=== PATIENT | male | born 1975 | race African-American/Black ===

== ENCOUNTER 2017-11-02 09:53 | Inpatient (IN) | payer OTHER ==
[~2017-11-02] VITALS: Ht 177.8 cm; Wt 74.8 kg
--- NOTE | 2017-11-02 09:55 | NUR ---
[id number] FROM [facility] FOR N/V/D, BACK SPASM, ACID REFLUX X 3AM. HYPERTENISVE IN THE FIELD-200/100, TAKES CLONIDINE 0.3MG TID. A/OX 4, BREATHING EVEN AND UNLABORED. NO SOB, NAD. SKIN WARM AND DRY. SAFETY AND COMFORT MEASURES IN PLACE. AWAITING MD ORDERS.
[2017-11-02] MEDS ORDERED: ONDANSETRON HCL/PF 4 MG/2 ML VIAL ONE (10:21)
[2017-11-02] MEDS ORDERED: PANTOPRAZOLE 40 MG VIAL ONE (10:21)
[2017-11-02] MEDS ORDERED: MORPHINE SULFATE INJ 2 MG/ML DISP.SYRIN ONE (10:22)
[2017-11-02] MEDS: HYDROMORPHONE INJ 2 MG/ML DISP.SYRIN IV ONE ×2 (10:22→10:40)
[2017-11-02 10:30] LABS: BASOPHILS # (AUTO) 0.2 /CMM (0.0-0.2); BASOPHILS % (AUTO) 1.4 % (0.0-2.0); EOSINOPHILS % (AUTO) 0.5 % (0.0-6.0); HEMATOCRIT 45 % (39-51); HEMOGLOBIN 14.8 g/dL (13.5-17.5); LYMPHOCYTES # (AUTO) 1.7 /CMM (0.8-4.8); LYMPHOCYTES % (AUTO) 14.2 % (20.0-44.0); MEAN CORPUSCULAR HGB CONC 33 g/dl (31.0-36.0); MEAN CORPUSCULAR VOLUME 78 fL (80-96); MONOCYTES # (AUTO) 0.4 /CMM (0.1-1.30); MONOCYTES % (AUTO) 3.8 % (2.0-12.0); NEUTROPHILS # (AUTO) 9.4 /CMM (1.8-8.9); NEUTROPHILS % (AUTO) 80.1 % (43.0-81.0); PLATELET COUNT (AUTO) 401 /CMM (150-450); RDW COEFFICIENT OF VARIATION 13.5 (11.5-15.0); RED BLOOD CELL COUNT(AUTO) 5.74 MIL/uL (4.5-6.0); WHITE BLOOD COUNT (AUTO) 11.8 K/uL (4.3-11.0)
[2017-11-02] MEDS ORDERED: IV NS 0.9% 1,000 ML BAG IV ONE (10:30)
[2017-11-02] MEDS ORDERED: MORPHINE SULFATE INJ 2 MG/ML DISP.SYRIN IV ONE ×2 (10:30→13:00)
[2017-11-02] MEDS ORDERED: ONDANSETRON HCL/PF 4 MG/2 ML VIAL IVP ONE (10:30)
[2017-11-02] MEDS ORDERED: PANTOPRAZOLE 40 MG VIAL IV ONE (10:30)
[2017-11-02 10:43] LABS: CALCIUM, SERUM 9.7 mg/dL (8.5-10.1); CREATININE 1.1 mg/dL (0.6-1.3); POTASSIUM 3.7 mmol/L (3.5-5.1)
[2017-11-02 10:49] LABS: ALBUMIN 4.6 g/dL (3.4-5.0); BILIRUBIN,DIRECT 0.1 mg/dL (0.0-0.2); BILIRUBIN,TOTAL 0.5 mg/dL (0.2-1.0); TOTAL PROTEIN, SERUM 8.8 g/dL (6.4-8.2)
[2017-11-02] MEDS ORDERED: MORPHINE SULFATE INJ 4 MG/ML DISP.SYRIN ONE (12:57)
[2017-11-02] MEDS ORDERED: LABETALOL HCL IV 100MG VIAL ONE (12:58)
[2017-11-02] MEDS ORDERED: LABETALOL HCL IV 100MG VIAL IV ONE ×2 (13:00→14:00)
[2017-11-02] MEDS ORDERED: IOHEXOL-300 100 ML VIAL IV ONE (13:27)
--- NOTE | 2017-11-02 13:32 | NUR ---
PATIENT TAKEN TO CT VIA WHEELCHAIR.
--- NOTE | 2017-11-02 13:47 | NUR ---
PATIENT RETURNED FROM CT IN STABLE CONDITION.
[2017-11-02] MEDS ORDERED: HYDROMORPHONE INJ 0.5 MG/0.5 ML SYRINGE ONE (15:30)
[2017-11-02] MEDS ORDERED: diphenhydrAMINE HCL 50 MG/ML VIAL IV ONE (15:30)
[2017-11-02] MEDS ORDERED: HYDROMORPHONE 1 MG/1 ML DISP.SYRIN IV ONE (15:30)
[2017-11-02] MEDS ORDERED: diphenhydrAMINE HCL 50 MG/ML VIAL ONE (15:30)
[2017-11-02] MEDS ORDERED: CLONIDINE HCL 0.1 MG TABLET PO ONE ×3 (15:30→16:00)
[2017-11-02] MEDS ORDERED: CLONIDINE HCL 0.1 MG TABLET ONE ×2 (15:31→15:41)
--- NOTE | 2017-11-02 15:40 | NUR ---
PT IS ASSIGNED TO [facility]#: 306-1, PT IS DIAGNOSED WITH UNCONTROLLABLE HTN, AND LUIS GUTIERREZ IS THE ACCEPTING EMR TRAINER.
[2017-11-02] MEDS ORDERED: QUET200T PO (15:41)
[2017-11-02] MEDS ORDERED: SERT100T PO (15:41)
[2017-11-02] MEDS ORDERED: CLON1TAB5 PO (15:41)
[2017-11-02] MEDS ORDERED: CLON0.3T PO (15:41)
--- NOTE | 2017-11-02 15:53 | NUR ---
REPORT GIVEN TO DULCE BENAVIDEZ FOR JAIME.
[2017-11-02 16:00] VITALS: BP_SYST 162; BP_SYST 165; BP_DIAS 103; BP_DIAS 89
[2017-11-02] MEDS ORDERED: ACETAMINOPHEN 325 MG TABLET PO PRN (16:00)
[2017-11-02] MEDS ORDERED: MAG HYDROX/AL HYDROX/SIMETH 30 ML UDC PO PRN ×2 (16:00→16:15)
[2017-11-02] MEDS ORDERED: ONDANSETRON HCL/PF 4 MG/2 ML VIAL IVP PRN ×2 (16:00→16:15)
[2017-11-02] MEDS ORDERED: HYDROCODONE/APAP 5/325MG 1 EACH TABLET PO PRN (16:00)
[2017-11-02] MEDS ORDERED: Z GUARD REMEDY 2 OZ OINT TP PRN ×2 (16:00→16:15)
[2017-11-02] MEDS ORDERED: MAGNESIUM HYDROXIDE 30 ML UDC PO PRN ×2 (16:00→16:15)
--- NOTE | 2017-11-02 16:00 | NUR ---
RN NOTES PT WAS BROUGHT UP TO FLOOR BY WEATHER ANALYST. PT IS A/O X4, ABLE TO AMBULATE TO THE BED. PT ON RA, RESPIRATIONS ARE EVEN AND UNLABORED. IV ON LAC INTACT AND SL. NO SIGNS OF DISTRESS NOTED. SAFETY MEASURES ARE IN PLACE, CALL LIGHT IS IN REACH. WILL CONTINUE TO MONITOR.
--- NOTE | 2017-11-02 16:00 | NUR ---
PATIENT TRANSPORTED TO 306-1 VIA ACLS PROTOCOL. RNDULCE TO PROVIDE JAIME.
[2017-11-02] MEDS ORDERED: CLONIDINE HCL 0.1 MG TABLET PO SCH (17:00)
[2017-11-02] MEDS: SERTRALINE HCL 50 MG TABLET PO SCH (17:27)
[2017-11-02] MEDS: QUETIAPINE FUMARATE 100 MG TABLET PO SCH (17:28)
--- NOTE | 2017-11-02 18:40 | NUR ---
RN NOTES PT IS SITTING UP IN BED, AWAKE AND ALERT. PT ON RA, RESPIRATIONS ARE EVEN AND UNLABORED. IV ON LAC INTACT AND SL. ALL MEDS WERE GIVEN ORDERED AND PT NEEDS MET. NO SIGNS OF DISTRESS NOTED. SAFETY MEASURES ARE IN PLACE, CALL LIGHT IS IN REACH. WILL ENDORSE TO BILINGUAL TEACHER ASSISTANT RN FOR CONTINUITY OF CARE.
[2017-11-02] MEDS: clonazePAM 1 MG TABLET PO PRN (18:47)
[2017-11-02] MEDS: HYDROCODONE/APAP 5/325MG 1 EACH TABLET PO PRN ×2 (18:51→22:58)
--- NOTE | 2017-11-02 19:20 | NUR ---
PLANT AND MACHINERY VALUER OPENING NOTES: RECEIVED PT IN BED AND IS AWAKE. PT IS A/OX3. PT HAS IV ON L AC AND IS PATENT AND INTACT. PT CURRENTLY [id number] OF ITCHINESS. CALL LIGHT WITHIN PT'S REACH. BED KEPT IN LOW, LOCKED POSITION, AND SIDE RAILS X 2 UP. WILL CONTINUE TO MONITOR PT.
[2017-11-02 20:00] VITALS: BP 145/102
[2017-11-02] MEDS: hydrOXYzine 10 MG TABLET PO PRN (20:01)
[2017-11-02] MEDS: FAMOTIDINE (20 MG) 20 MG TABLET PO SCH (20:01)
--- NOTE | 2017-11-02 20:01 | NUR ---
ALL SOURCE COLLECTION MANAGER NOTES: PT COMPLAINING OF ITCHINESS EVEN AFTER BENADRYL WAS GIVEN EARLIER. PT WAS ADMINISTERED ATARAX PO. WILL CONTINUE TO MONITOR.
[2017-11-03] VITALS (7 sets, daily range): BP systolic 134–164; BP diastolic 72–118
[2017-11-03] MEDS: hydrOXYzine 10 MG TABLET PO PRN (04:30)
[2017-11-03] MEDS: HYDROCODONE/APAP 5/325MG 1 EACH TABLET PO PRN ×3 (04:30→20:11)
--- NOTE | 2017-11-03 04:30 | NUR ---
CASEWORK SPECIALIST NOTES: PT COMPLAINING OF INTERMITTENTLY BACK AND ABDOMINAL PAIN. "IT COMES AND GOES." 12/23 PAIN. PT WAS ADMINISTERED NORCO 5. PT ALSO SAID HIS ITCHINESS CALMED DOWN BUT WOULD STILL LIKE SOMETHING FOR IT IF PRN MED IS DUE. PT WAS ALSO ADMINISTERED ATARAX 10MG. WILL CONTINUE TO MONITOR PT.
--- NOTE | 2017-11-03 06:12 | NUR ---
CUSTOMER FIELD REPRESENTATIVE CLOSING NOTES: ALL NEEDS WERE ATTENDED AND ANTICIPATED FOR. PT ASLEEP AT THIS TIME. PT ON ROOM AIR AND TOLERATING WELL. PT ON TELE BOX AND READING SHOWS SR 70S. PT HAS IV ON L AC #20G AND IS PATENT AND INTACT. CURRENTLY S/L. CALL LIGHT WITHIN PT'S REACH. BED KEPT IN LOW, LOCKED POSITION, AND SIDE RAILS X 2UP. WILL ENDORSE TO AM NURSE FOR JAIME.
--- NOTE | 2017-11-03 07:22 | NUR ---
MS/RN Patient received Patient received from welder 2nd shift. 9Sleeping soundly at this time, appears in no distress. Bed in low setting, brakes locked, side rails X2 in upright position, call light within reach. Will continue to monitor and ensure safety.
[2017-11-03] MEDS ORDERED: PANTOPRAZOLE 40 MG TABLET.DR PO SCH ×2 (07:30)
[2017-11-03] MEDS: FAMOTIDINE (20 MG) 20 MG TABLET PO SCH ×2 (08:24→20:11)
[2017-11-03] MEDS: predniSONE 5 MG TABLET PO SCH (08:24)
[2017-11-03] MEDS: cetrizine 10 MG TABLET PO SCH (08:24)
[2017-11-03] MEDS: SERTRALINE HCL 50 MG TABLET PO SCH ×2 (08:24→17:04)
[2017-11-03] MEDS: CLONIDINE HCL 0.1 MG TABLET PO SCH ×3 (08:25→17:05)
[2017-11-03] MEDS: QUETIAPINE FUMARATE 100 MG TABLET PO SCH ×3 (08:26→17:05)
--- NOTE | 2017-11-03 09:34 | NUR ---
MS/RN Pain Complaining of lower back pain 12/23. Manzanita one tablet administered, will monitor effectiveness.
[2017-11-03 10:30] LABS: BASOPHILS % (AUTO) 0.5 % (0.0-2.0); EOSINOPHILS % (AUTO) 2.9 % (0.0-6.0); HEMATOCRIT 38 % (39-51); HEMOGLOBIN 12.7 g/dL (13.5-17.5); LYMPHOCYTES # (AUTO) 1.6 /CMM (0.8-4.8); MEAN CORPUSCULAR HGB CONC 33 g/dl (31.0-36.0); MEAN CORPUSCULAR VOLUME 79 fL (80-96); MONOCYTES # (AUTO) 0.6 /CMM (0.1-1.30); MONOCYTES % (AUTO) 7.1 % (2.0-12.0); NEUTROPHILS # (AUTO) 5.3 /CMM (1.8-8.9); NEUTROPHILS % (AUTO) 68.5 % (43.0-81.0); PLATELET COUNT (AUTO) 342 /CMM (150-450); RDW COEFFICIENT OF VARIATION 14.5 (11.5-15.0); RED BLOOD CELL COUNT(AUTO) 4.85 MIL/uL (4.5-6.0); WHITE BLOOD COUNT (AUTO) 7.8 K/uL (4.3-11.0)
--- NOTE | 2017-11-03 10:48 | NUR ---
Social service consult requested by KRISTI Hernandez for headache/alcohol abuse. Pt. is a 42 year old male who was admitted to [facility] for a headache from [facility]. TONIA met with pt. bedside. Pt. is alert and oriented x 4. Pt. was cooperative and some what guarded when speaking with SW. Pt. states he resides at an independent living located at [address] [place] [address] in [facility]. Pt. states he does not like it there and is working with a case packer and sealer at [facility] to find permanent placement. Pt. has a history of Bipolar, Depression and anxiety. Pt. states he is depressed and would like to be discharged back to [facility] for ongoing psychiatric care. Pt's medications include Trazadone, Klonopin, Zoloft and Seroquel. Pt. to be seen by psychiatrist today at [facility]. TONIA contacted [facility] and spoke to Odalys in intake inquiring if they will accept pt. back. Odalys informed TONIA to fax clinicals once pt. is cleared for discharge and they will evaluate and follow up with TONIA. TONIA updated Med Surg 3 CRNavjot Moseley regarding pt's discharge plan. Addendum: 11/04/17 at 0946 by ALEX RANDALL Pt's current [address] is [address] [place] [address].
[2017-11-03 10:50] LABS: CALCIUM, SERUM 8.8 mg/dL (8.5-10.1); PHOSPHORUS 3.1 mg/dL (2.5-4.9)
[2017-11-03 11:02] LABS: THYROID STIMULATING HORMONE 2.756 uIU/mL (0.358-3.74)
--- NOTE | 2017-11-03 11:30 | NUR ---
MS/RN S/B Alondra Hernandez BUS ATTENDANT S/B BUS ATTENDANT - labs ordered for tomorrow along with psyh consult with Dr Romero. GPS made aware of consult, face sheet faxed.
[2017-11-03] MEDS: clonazePAM 1 MG TABLET PO PRN (13:42)
[2017-11-03] MEDS: ACETAMINOPHEN 325 MG TABLET PO PRN (13:42)
--- NOTE | 2017-11-03 14:46 | NUR ---
MS/RN Anxiety Patient stating that he is starting to feel anxious and requesting medication. Klonopin 1mg administered along with tylenol for headache, will monitor effectiveness.
--- NOTE | 2017-11-03 18:09 | NUR ---
MS/RN End note Patient remains in stable condition, all needs attended, will endorse to security patrol officer. Still awaiting psych eval.
--- NOTE | 2017-11-03 19:18 | NUR ---
MS RN OPENING NOTES: RECEIVED PT IN BED AND IS ASLEEP AT THIS TIME. PT ON ROOM AIR AND TOLERATING WELL. IV IN TACT AND IS PATENT AND INTACT. CALL LIGHT WITHIN PT'S REACH. BED KEPT IN LOW, LOCKED POSITION, AND SIDE RAILS X 2UP. WILL CONTINUE TO MONITOR PT.
--- NOTE | 2017-11-03 20:16 | NUR ---
MS RN NOTES: PT COMPLAINING OF 8/10 HEADACHE AND MOUTH PAIN. PT WAS ADMINISTERED NORCO 5. WILL CONTINUE TO MONITOR.
--- NOTE | 2017-11-04 07:14 | NUR ---
MS/RN Patient received Patient received from film processing shift supervisor. Sleeping soundly at this time, appears in no distress or discomfort. Bed in low setting, brakes locked, side rails X2 in upright position. Call light within reach, will continue to monitor and ensure safety.
--- NOTE | 2017-11-04 07:16 | NUR ---
MS RN CLOSING NOTES: ALL NEEDS WERE ATTENDED AND ANTICIPATED FOR. PT ON ROOM AIR AND TOLERATING WELL. PT A/OX4. PT HAS IV AND IS PATENT AND INTACT. CALL LIGHT WITHIN PT'S REACH. BED KEPT IN LOW, LOCKED POSITION, AND SIDE RAILS X 2UP. ENDORSED TO AM NURSE FOR JAIME.
[2017-11-04 07:31] LABS: CALCIUM, SERUM 8.9 mg/dL (8.5-10.1); CREATININE 1.1 mg/dL (0.6-1.3); MAGNESIUM 1.8 mg/dL (1.8-2.4); PHOSPHORUS 3.5 mg/dL (2.5-4.9)
[2017-11-04 07:35] LABS: BASOPHILS % (AUTO) 0.4 % (0.0-2.0); EOSINOPHILS % (AUTO) 2.3 % (0.0-6.0); HEMATOCRIT 40 % (39-51); HEMOGLOBIN 13.3 g/dL (13.5-17.5); LYMPHOCYTES % (AUTO) 21.1 % (20.0-44.0); MEAN CORPUSCULAR HGB CONC 33 g/dl (31.0-36.0); MEAN CORPUSCULAR VOLUME 78 fL (80-96); MONOCYTES # (AUTO) 0.6 /CMM (0.1-1.30); MONOCYTES % (AUTO) 6.6 % (2.0-12.0); NEUTROPHILS # (AUTO) 6.5 /CMM (1.8-8.9); NEUTROPHILS % (AUTO) 69.6 % (43.0-81.0); PLATELET COUNT (AUTO) 375 /CMM (150-450); RDW COEFFICIENT OF VARIATION 14.6 (11.5-15.0); RED BLOOD CELL COUNT(AUTO) 5.09 MIL/uL (4.5-6.0); WHITE BLOOD COUNT (AUTO) 9.3 K/uL (4.3-11.0)
[2017-11-04 08:00] VITALS: BP 186/114
[2017-11-04] MEDS: CLONIDINE HCL 0.1 MG TABLET PO SCH ×3 (08:23→17:06)
[2017-11-04] MEDS: predniSONE 5 MG TABLET PO SCH (08:23)
[2017-11-04] MEDS: cetrizine 10 MG TABLET PO SCH (08:23)
[2017-11-04] MEDS: FAMOTIDINE (20 MG) 20 MG TABLET PO SCH ×2 (08:23→20:35)
[2017-11-04] MEDS: QUETIAPINE FUMARATE 100 MG TABLET PO SCH ×3 (08:23→17:06)
[2017-11-04] MEDS: SERTRALINE HCL 50 MG TABLET PO SCH ×2 (08:23→17:07)
[2017-11-04] MEDS: ACETAMINOPHEN 325 MG TABLET PO PRN (08:24)
--- NOTE | 2017-11-04 08:55 | NUR ---
MS/RN Hypertension Blood pressure this morning noted to be elevated at 186/114. Morning scheduled medications administered, will recheck after 30 minutes.
[2017-11-04] MEDS: HYDROCODONE/APAP 5/325MG 1 EACH TABLET PO PRN (09:45)
--- NOTE | 2017-11-04 09:46 | NUR ---
[facility]
[2017-11-04 11:30] VITALS: BP 153/102
--- NOTE | 2017-11-04 11:30 | NUR ---
MS/RN S/B Dr Moreno Seen by Dr Moreno - patient to be discharged back to [facility] later today.
[2017-11-04 12:00] VITALS: BP 148/99
--- NOTE | 2017-11-04 12:00 | NUR ---
MS/RN Blood pressure Blood pressure recorded at noon - 148/99. Medications administered, will recheck.
[2017-11-04] MEDS ORDERED: NICO-676 TP (12:22)
[2017-11-04] MEDS: clonazePAM 1 MG TABLET PO PRN (12:53)
[2017-11-04 14:00] VITALS: BP 160/114
--- NOTE | 2017-11-04 14:00 | NUR ---
MS/RN Blood pressure rechecked Not able to get blood pressure reading using automatic machine, checked manually 160/114. Patient denies pain, medications previously given for anxiety and hypertension. Dr Josh jerome.
--- NOTE | 2017-11-04 15:15 | NUR ---
MS/RN New orders New order given by Dr Moreno for norvasc 5mg BID, first dose now.
[2017-11-04] MEDS: AMLODIPINE BESYLATE 5 MG TABLET PO SCH ×2 (15:19→17:07)
[2017-11-04 16:00] VITALS: BP_SYST 147; BP_SYST 149; BP_DIAS 97
--- NOTE | 2017-11-04 18:10 | NUR ---
MS/RN End note Blood pressure continues to be elevated 149/97, all medications administered as ordered. Will continue to monitor and endorse to loom doffer.
--- NOTE | 2017-11-04 19:15 | NUR ---
MS/RN OPENING NOTES PT RECEIVED WITH EYES CLOSED, RESTING IN BED. ON ROOM AIR, BREATHING EVEN AND UNLABORED. DENIES SOB, NOTES LOW BACK PAIN 12/23. OFFERED PAIN MEDICATION, PT WANTS TO WAIT UNTIL LATER. IV TO LAC PATENT AND INTACT. PT IS CALM AND COOPERATIVE AT THIS TIME. BED IN LOW/LOCKED POSITION WITH CALL LIGHT IN REACH. SIDE RAILS UPX2. WILL CONTINUE TO MONITOR
[2017-11-04 20:00] VITALS: BP 117/66
[2017-11-05] MEDS: HYDROCODONE/APAP 5/325MG 1 EACH TABLET PO PRN (05:22)
--- NOTE | 2017-11-05 06:39 | NUR ---
PT C/O OF NAUSEA. ADMINISTERED PRN ZOFRAN ORDERED. WILL MONITOR FOR EFFECTIVENESS
--- NOTE | 2017-11-05 07:39 | NUR ---
MS/RN CLOSING NOTES PT AWAKE, HOB ELEVATED. A/OX4. ON ROOM AIR, BREATHING EVEN AND UNLABORED. IN NO APPARENT DISTRESS. DENIES SOB, PAIN DECREASED AFTER ADMINISTRATION OF NORCO. NAUSEA CEASED. IV TO LAC PATENT AND INTACT. NO SIGNIFICANT CHANGES OVERNIGHT. PT COMFORTABLE DURING SHIFT. ALL NEEDS MET. BED IN LOW/LOCKED POSITION WITH CALL LIGHT IN REACH. SIDE RAILS UPX2. ENDORSED TO DAY SHIFT RN JAIME.
--- NOTE | 2017-11-05 07:45 | NUR ---
RN NOTES PATIENT A/OX4, BREATHING EVEN AND UNLABORED, NO SOB NOTED, DENIES PAIN OR DISCOMFORT AT THIS TIME. NEEDS ATTENDED, CALL LIGHT WITHIN REACH, WILL CONTINUE TO MONITOR.
[2017-11-05 08:00] VITALS: BP 156/111
[2017-11-05] MEDS: QUETIAPINE FUMARATE 100 MG TABLET PO SCH ×2 (08:38→12:47)
[2017-11-05] MEDS: CLONIDINE HCL 0.1 MG TABLET PO SCH ×2 (08:38→12:47)
[2017-11-05] MEDS: predniSONE 5 MG TABLET PO SCH (08:39)
[2017-11-05] MEDS: AMLODIPINE BESYLATE 5 MG TABLET PO SCH (08:39)
[2017-11-05] MEDS: FAMOTIDINE (20 MG) 20 MG TABLET PO SCH (08:39)
[2017-11-05] MEDS: cetrizine 10 MG TABLET PO SCH (08:40)
[2017-11-05] MEDS: SERTRALINE HCL 50 MG TABLET PO SCH (08:40)
[2017-11-05 11:02] VITALS: BP 129/89
--- NOTE | 2017-11-05 11:20 | NUR ---
TONIA faxed current clinicals along with discharge progress note to Odalys in intake at [facility] Nathanael Chau . TONIA received a call back from [facility] stating the accepting doctor at [facility] is Dr. Mccollum and for the nurse to call in a nurse to nurse report to x [phone]. TONIA called pt's RN Mitzi and gave her the aforementioned contact number for RN to RN report.
--- NOTE | 2017-11-05 12:22 | NUR ---
TONIA gave PRAMOD Cartagena address to [facility] located at [address] [facility] [place] [address]. Pt. will need taxi voucher for transportation to [facility].
[2017-11-05 12:47] VITALS: BP 141/90
--- NOTE | 2017-11-05 13:36 | NUR ---
MARBLE CEILING INSTALLER NOTE PATIENT A/OX4, STILL SUICIDAL, NO SPECIFIC PLAN AT THIS TIME, PATIENT IS IN NO DISTRESS, DENIES D/N/V AT THIS TIME. PATIENT RECEIVED DISCHARGE INSTRUCTIONS AND VERBALIZED UNDERSTANDING. PIV REMOVED COVERED WITH GAUZE AND TAPE, SKIN ASSESSMENT COMPLETED, SKIN DRY AND INTACT. BELONGINGS RECONCILED AND COMPLETE. PATIENT RECEIVED PAPERWORKS AND PRESCRIPTION.PATIENT IS INDEPENDENT WITH ADLS. LEFT THE FACILITY IN NO DISTRESS VIA TAXI.
== END 2017-11-05 13:33 | disposition home or self-care (01) | DRG 199 ==
LOC: ER 09:54 → TELE 16:12 → MED 11-03 09:18
PROVIDERS: ADMIT Registered Nurse; ATTEND Registered Nurse
DX: I16.1 Hypertensive emergency (principal); F25.9 Schizoaffective disorder, unspecified; F10.129 Alcohol abuse with intoxication, unspecified; I10 Essential (primary) hypertension; Z88.8 Allergy status to other drugs, medicaments and biological substances; M19.90 Unspecified osteoarthritis, unspecified site; F17.200 Nicotine dependence, unspecified, uncomplicated; K21.9 Gastro-esophageal reflux disease without esophagitis; R10.9 Unspecified abdominal pain
CPT/HCPCS: 36415; 80048-TC; 80061-TC; 80076-TC; 80305; 83690-TC; 83735-TC; 84100-TC; 84443-TC; 85025-TC; 87081-TC; 94760-TC; A4606; C9113; J1200; J2270; J2405; J3490; J7030; J7512; L8501; Q0177; Q9967; Z7610